=== PATIENT | female | born 1940 | race Caucasian/White ===

== ENCOUNTER 2016-02-20 07:38 | Inpatient (IN) | payer OTHER ==
[~2016-02-20] VITALS: Ht 160 cm; Wt 152.9 kg
--- NOTE | ~2016-02-20 | HC ---
[facility] [place] [address] CONSULTATION Name: ENDER REYES Suzette Room #: 406-P [facility] IN ..#: [id number] Admission: 02/20/16 Attend Phys: Truman Braun MD Discharge: 02/27/16 Date of : 38 Report #: [id number] THIS REPORT FOR: //name// CC: Truman Braun HISTORY OF PRESENT ILLNESS: The patient is a 75-year-old white female with a history of multiple medical problems who was admitted with chronic kidney disease, fluid retention, acute on chronic diastolic congestive heart failure, and acute on chronic kidney disease stage 3. She was noted to have lymphedema. She also has a lung mass in the left upper lobe and was seen by oncology with recommendations for an outpatient PET scan. She has considerable knee degenerative arthritis and the recommendations were to consider knee injections as an outpatient with hyaluronic acid. She does have generalized weakness and debilitation and we are seeing her in rehabilitation medicine consultation. PAST MEDICAL HISTORY: Includes chronic kidney disease stage 3, pulmonary hypertension, pulmonary embolism 11/23, on chronic Coumadin; COPD, obstructive sleep apnea, coronary artery disease, DJD, restless legs syndrome, and peripheral neuropathy. MEDICATIONS: Please see the full medication listing. SOCIAL HISTORY: Lives with her daughters family in a house, used a walker has a lift device. She tends to sleep in the lift chair. There is one step into the house. She used a walker short distances in the house. She did need assist with most ADLs from her daughter. Her daughter typically is home, but is in and out. From my records, the daughter apparently was homeschooling and could be present to assist. REVIEW OF SYSTEMS: Did not offer any current complaints of chest pain, shortness of breath or abdominal discomfort. PHYSICAL EXAMINATION: GENERAL: A 75-year-old obese white female, in no obvious distress. She is alert and oriented. VITAL SIGNS: Last recorded temperature is 97.7, pulse 69, respirations 20, blood pressure 123/36. HEENT: Appeared to be benign. Cranial nerves are grossly intact. Facies are symmetric. EXTREMITIES: She has functional range of motion of both upper extremities without obvious focal weakness. DTRs are trace to 1. In her lower extremities, she has lower extremity lymphedema. Both legs are wrapped. Strength of the lower extremities is a grade 4-/5. Tone is intact. She is mod assist with sit to stand. Gait was mod assist to 8 steps with a front-wheeled walker. ASSESSMENT: A 75-year-old white female with the following problem list: 1. Medical complexity with generalized debilitation. 2. Acute on chronic [address] [address] CONSULTATION Name: ENDER REYES Suzette Room #: 406-P [facility] IN ..#: [id number] Admission: 02/20/16 Attend Phys: Truman Braun MD Discharge: 02/27/16 Date of : 38 Report #: [id number] diastolic congestive heart failure. 3. Acute on chronic kidney disease stage 3. 4. Lymphedema. 5. Lung mass, left upper lobe with plan for outpatient PET. 6. History of degenerative arthritis of both knees with plans for outpatient knee injections by orthopedics with hyaluronic acid. 7. Chronic obstructive pulmonary disease. 8. Obstructive sleep apnea. 9. Restless legs syndrome. 10. Pulmonary hypertension. PLAN: The patient was recently on the acute inpatient [facility]hab [place] in September 2015. She unfortunately does not have a new acute inpatient rehab diagnosis to warrant another acute in-hospital inpatient rehabilitation stay. Note that care home facility options are also being considered. Discussion was held with the daughter and the patient. Thank you for asking us to assist in this patient's care. <ELECTRONICALLY SIGNED> By: Truman Marin MD 03/04/16 1617 1451 1536 Trumna Marin MD /nt
--- NOTE | ~2016-02-20 | D ---
[facility] [place] [address] DISCHARGE SUMMARY Name: ENDER REYES Room #: 406-P [facility] IN ..#: [id number] Admission: 02/20/16 Attend Phys: Truman Braun MD Discharge: 02/27/16 Date of : 38 Report #: [id number] THIS REPORT FOR: //name// CC: Truman Braun FINAL DIAGNOSES: 1. Acute on chronic diastolic congestive heart failure. 2. Chronic kidney disease, stage 4. 3. Lymphedema. 4. Obstructive sleep apnea. 5. Morbid obesity. 6. Osteoarthritis of the knees. 7. History of pulmonary embolus. 8. Chronic anticoagulation. 9. Left upper lung mass. HOSPITAL COURSE: This patient was admitted for exacerbation of her heart failure and complicating kidney disease, a De La Rosa catheter was placed, and she was given IV diuretics, for management and monitoring urinary output. Over the course of 4-5 days, she was approximately negative 9 liters of fluid. The edema in the lower legs have improved significantly. Chest x-ray did not show any pulmonary edema. However, there was a sign of an increasing left upper lung mass. CT of the chest confirmed suspicious appearing mass. Ultimately the plan was an outpatient PET scan with consideration of biopsy at a later date. She had a lot of arthritis in the knees, which limited mobility. Orthopedic service felt cartilage injections could be done, but only as an outpatient. Ultimately, she was too weak to return home and agreed to a assisted placement. PHYSICAL EXAMINATION: On the day of discharge, her vital signs were stable. LUNGS: Clear. HEART: Regular. ABDOMEN: Soft. EXTREMITIES: Showed 1+ edema. LABORATORY DATA: Creatinine was 1.8, with a BUN of 62. DISPOSITION: She will transfer to [facility]. I will follow her stay there. Physical and occupational therapy. I have signed her transfer medication orders. Followup and lab work will be ordered. Once she is ambulatory, we will proceed with an outpatient PET scan and follow up with orthopedic surgery for knee injections. <ELECTRONICALLY SIGNED> By: Truman Braun MD 02/27/16 1730 1401 1650 Truman Braun MD /nt
--- NOTE | ~2016-02-20 | HC ---
[facility] [place] [address] CONSULTATION Name: BROOKLYN REYES Room #: 406-P [facility] IN ..#: [id number] Admission: 02/20/16 Attend Phys: Truman Braun MD Discharge: 02/27/16 Date of : 38 Report #: [id number] THIS REPORT FOR: //name// CC: Truman Braun This is Dr. Pascual, physician library technical assistant in collaboration with Dr. Osvaldo Goins dictating a consultation note on patient, Brooklyn Reyes. ADMIT DATE: 02/20/2016 ADMITTING PHYSICIAN: Dr. Truman Braun. DATE OF CONSULTATION: 02/22/2016. CHIEF COMPLAINT: Bilateral lower extremity lymphedema and shortness of breath. REASON FOR CONSULTATION: For evaluation and recommendation regarding wound care. HISTORY OF PRESENT ILLNESS: The patient is a 75-year-old female with multiple medical comorbidities. She states that she has had lymphedema to her legs for several years, but has noted an increased edema to bilateral lower extremities over the past week. She has increased fluid retention as well as shortness of breath. She has chronic kidney disease stage III, complicated with pulmonary hypertension and systolic dysfunction. The patient states that she typically treats her legs with Kerlix and Konstantin bandage for edema control. The weeping is new to the distal lateral aspect of her left lower extremity. PAST MEDICAL HISTORY: Significant for pulmonary embolus in 2014, she is chronically anticoagulated, chronic pulmonary hypertension, chronic kidney disease, COPD, obstructive sleep apnea on CPAP, lymphedema, coronary artery disease, osteoarthritis of the knees, restless leg syndrome, renal artery stenosis, peripheral neuropathy, hypothyroidism, gout and iron deficiency anemia. PAST SURGICAL HISTORY: Significant for hysterectomy. She states she has had two stents placed to her renal arteries as well as two stents to her heart. SOCIAL HISTORY: She lives with her daughter. Negative for tobacco or alcohol use. FAMILY HISTORY: Noncontributory to current diagnosis. She states family members have varicosities to lower extremities, but negative for lymphedema. ALLERGIES: FLAGYL and PAXIL. MEDICATIONS: Include potassium, Lipitor, Toprol, Demadex, gabapentin, Mirapex, [facility] [address] [place] [address] CONSULTATION Name: AMYBROOKLYN L Room #: 406-P [facility] IN ..#: [id number] Admission: 02/20/16 Attend Phys: Truman Braun MD Discharge: 02/27/16 Date of : 38 Report #: [id number] Ellipta inhaler, ProAir, hydrocodone, Coumadin, and Zoloft. REVIEW OF SYSTEMS: The patient denies fevers, chills or recent sick contacts. She denies headache, change in vision. She denies chest pain or palpitations. She does report shortness of breath. She denies abdominal pain, nausea or vomiting. She does report significant knee pain, which causes her to have mobility issues as well as the increased edema to her legs and she states that her legs become too heavy to move. PHYSICAL EXAMINATION: GENERAL: The patient is morbidly obese. PSYCH: Normal mood. She is alert and oriented. No acute apparent distress. VITAL SIGNS: Temperature 36.5, pulse 61, respirations 18, blood pressure 139/59. HEENT: Head atraumatic. Mucous membranes sure dry. Pupils round. Sclerae white. NECK: Negative for JVD. CARDIOVASCULAR: Regular rate and rhythm. LUNGS: Symmetric expansion, cleared, nonlabored. She does have nasal cannula oxygen in place. ABDOMEN: Soft, nontender, obese. She does have a De La Rosa catheter in, which she states is from the hospitalization. NEUROLOGIC: Cranial nerves 2-12 are intact. She can move all four limbs. Negative for focal neurosensory deficit. Exam of the lower extremities, she has significant lymphedema with lymphedema nodules present from ankle to knee. SKIN: There is significant edema and brawny appearance and she has scaly adherent skin. There is an area of mild serous weeping to the left distal lateral lower extremity. This is scant and honey-colored crust . The patient has 2+ pulse bilaterally. LABORATORY DATA: White blood cells 11.4, hemoglobin 11.1, albumin 3.2. ASSESSMENT: 1. Acute on chronic diastolic congestive heart failure. 2. Acute on chronic kidney disease stage III. 3. Lymphedema with exacerbation of edema and fluid retention. 4. Pulmonary hypertension. 5. Morbid obesity. 6. Hypertension. 7. Anemia of chronic disease. 8. Osteoarthritis in bilateral knees. 9. Obstructive sleep apnea on CPAP. 10. History of pulmonary embolus and on chronic anticoagulation with Coumadin. PLAN: 1. The patient started with IV diuretics and De La Rosa catheter. We will consult [address] [address] CONSULTATION Name: BROOKLYN REYES Suzette Room #: 406-P [facility] IN ..#: [id number] Admission: 02/20/16 Attend Phys: Truman Braun MD Discharge: 02/27/16 Date of : 38 Report #: [id number] physical therapy for pulse lavage to bilateral lower extremities to assist with stasis dermatitis. We will consult lymphedema nurse regarding possible lymphedema wraps on her treatments. 2. We did discuss outpatient lymphedema therapy once discharged. 3. Local wound care to consist of Silvadene and morphine to the lateral open area, Xeroform and ammonium lactate to the remaining areas of bilateral lower extremities covered with Xeroform and wrapped with Kerlix and Konstantin until treatment plans from lymphedema nurse. We will adjust timing of wounds treatments according to the lymphedema nurse's recommendation. 4. Continue routine for wound healing. 5. Continue to follow in wound care rounds during her hospital stay. Thank you for allowing us to participate in the care of this patient. <ELECTRONICALLY SIGNED> By: LUCY Spaulding 02/28/16 1430 2131 0838 LUCY Sapulding /nt
--- NOTE | ~2016-02-20 | HC ---
[facility] [place] [address] CONSULTATION Name: ENDER REYES Room #: 406-P [facility] IN M.R.#: [id number] Admission: 02/20/16 Attend Phys: Truman Braun MD Discharge: Date of : 38 Report #: [id number] THIS REPORT FOR: //name// CC: Truman Braun DATE OF SERVICE: 02/20/2016 SERVICE: Orthopedics. REQUESTING PHYSICIAN: Truman Braun MD HISTORY OF PRESENT ILLNESS: The patient is a 75-year-old female who was admitted to the hospital earlier today with a chief complaint of leg swelling and shortness of breath. She was having some generalized weakness and was noting that she has had worsening bilateral knee pain and was interested in discussing with orthopedics service. The background related to the knees is that she has chronic bilateral osteoarthritis that is severe with [id number] changes. She was admitted to the hospital back in October and saw Dr. Carey who was consulted during her hospitalization and he performed corticosteroid injections on a Thursday by her recollection. She states that she woke up on Thursday with good relief, but by Thursday the effect of the injections had worn off. She was set up with appointment with Dr. Carey just last week where she was interested in inquiring about hyaluronic acid injections, but the weather precluded her from coming, so she canceled and is set up for followup with him later this month. Orthopedics was consulted to discuss with her. She states that she is not interested in additional corticosteroid injections since she did not have adequate relief from either of the injections back in October for either knee. She prefers trialing the option of visco supplementation. She states that her pain is progressing to the point that she is having significant difficulty mobilizing at any point during the day. She does use a walker. ALLERGIES: METRONIDAZOLE and PAROXETINE. PAST MEDICAL HISTORY: Pulmonary embolism, on chronic Coumadin; pulmonary hypertension; stage 3 kidney disease; COPD; obstructive sleep apnea, requiring home CPAP; lymphedema; cardiac disease; osteoarthritis; restless leg syndrome; renal artery stenosis; history of heart failure; peripheral neuropathy; anemia; hypothyroidism and gout. PAST SURGICAL HISTORY: Hysterectomy. FAMILY HISTORY: Still noncontributory. SOCIAL HISTORY: She lives with her daughter. She denies any substance use or [address] [address] CONSULTATION Name: ENDER REYES Room #: 406-P [facility] IN [facility].#: [id number] Admission: 02/20/16 Attend Phys: Truman Braun MD Discharge: Date of : 38 Report #: [id number]. CURRENT MEDICATIONS: Coumadin, sertraline, Synthroid, Mirapex, metoprolol, gabapentin, Lipitor, Lasix, albuterol. PHYSICAL EXAMINATION: VITAL SIGNS: Temperature 36.4, pulse 72, respirations 18, blood pressure 135/43. GENERAL: She is an obese female, lying supine on the hospital bed, alert and oriented, in no acute distress, very appropriate and cooperative. EXTREMITIES: Examination of left lower extremity demonstrates chronic venous stasis skin changes with lymphedema and weakly palpable dorsalis pedis pulse. The posterior tibial pulse is not palpable. She has mild effusion in the knee. She does not have palpable osteophytes due to the soft tissue envelope, but there is medial tenderness. Range of motion is limited by position, but is non-irritable with brisk arc. She demonstrates active extension and flexion. Right lower extremity: Demonstrates chronic venous stasis skin changes with lymphedema and weakly palpable dorsalis pedis pulse. The posterior tibial pulse is not palpable. She has mild effusion in the knee. She does not have palpable osteophytes due to the soft tissue envelope, but there is medial tenderness. Range of motion is limited by position, but is non-irritable with brisk arc. She demonstrates active extension and flexion. RADIOGRAPHS: Two views of the right knee were obtained and demonstrate severe osteoarthritis of the right knee with [id number] changes in the medial compartment and osteophyte formation and subluxation of the tibia secondary to DJD. IMPRESSION: A 75-year-old female with multiple medical problems and immobility secondary to chronic bilateral knee pain with known history of advanced bilateral knee osteoarthritis. PLAN: I discussed with her the corticosteroid injection option, but she feels that she would not like to have this injection again as she did not have adequate relief with the previous trial. She is more interested in hyaluronic acid. This would be a 3 injection series that would require preapproval from her insurance company. She was interested in beginning that treatment here in the hospital. I explained that the 3-week course in an outpatient basis that this would preclude it from occurring in the hospital; however, she does have an appointment to see Dr. Carey and we will see if we can get started with the preapproval process. Her questions were answered. <ELECTRONICALLY SIGNED> By: Oliver Menezes MD 02/22/16 0714 2139 0611 Oliver Menezes MD /nt
--- NOTE | ~2016-02-20 | HC ---
[facility] [place] [address] CONSULTATION Name: ENDER REYES Room #: 406-P [facility] IN .R.#: [id number] Admission: 02/20/16 Attend Phys: Truman Braun MD Discharge: Date of : 38 Report #: [id number] THIS REPORT FOR: //name// CC: Truman Braun DATE OF SERVICE: 02/21/2016 HISTORY OF PRESENT ILLNESS: The patient is a 75-year-old female who was admitted with history of multiple medical problems. She was admitted for significant fluid retention and chronic kidney disease. She is being seen by Podiatry for her elongated, thickened, fungal toenails. She denies any other pedal complaints today. PHYSICAL EXAMINATION: EXTREMITIES: Lower extremities: DP pulses are 1/4. PT pulses are 0/4. Lower extremities with significant lymphedema and hyperpigmentation with brawny hyperpigmentation. The capillary filling time to the toes is less than 3 seconds. Temperature warm to cool. Significant edema to bilateral legs, feet and ankles. There is thin, shiny atrophic skin with decreased hair growth. Toenails 1 through 5 bilateral thickened, dystrophic, brittle with subungual debris, elongated and painful with palpation. There are mild hammertoes, contractures bilateral. Limited ankle dorsiflexion with knee extended and flexed. There is pain on palpation to periungual tissue toenails 1-10. . No other pain on palpation bilateral feet. ASSESSMENT: 1. Lymphedema, venous insufficiency with fluid retention. 2. Onychomycosis with pain in the limb. 3. History of gout, neuropathy. PLAN: Discussed the patient's condition with her in great detail. I have seen her in the past as an outpatient and inpatient. It has been many months since we have seen her last. She was interested in debridement today of her mycotic toenails noted above and this was performed. I again discussed treatment options for toenail fungus with her in detail. I answered all her questions and concerns. Thank you for this consult. <ELECTRONICALLY SIGNED> By: Ruth Alexis DPM 02/26/16 0912 2042 0040 Ruth Alexis DPM /nt
--- NOTE | ~2016-02-20 | H ---
[facility] [place] [address] HISTORY AND PHYSICAL Name: ENDER REYES Room #: 406-P [facility] IN .R.#: [id number] Admission: 02/20/16 Attend Phys: Truman Braun MD Discharge: Date of : 38 Report #: [id number] THIS REPORT FOR: //name// CC: Truman Braun DATE OF SERVICE: 02/20/2016 CHIEF COMPLAINT: Leg swelling and shortness of breath. HISTORY OF PRESENT ILLNESS: The patient is a 75-year-old female with multiple medical problems who was admitted from home for treatment of her chronic kidney disease producing significant fluid retention. She has a history of chronic kidney disease, stage 3 with complicated pulmonary hypertension and diastolic dysfunction, which is causing fluid retention. She has had worsening edema in the lower legs. Her legs have become painful, especially around the knees and below and it is very difficult for her to walk and get around. Her legs feel very heavy and stiff. She has had previous admissions for similar problems in the past and has responded well to IV diuretic therapy. PAST MEDICAL HISTORY: Pulmonary embolus 11/2014, on chronic Coumadin therapy. She has chronic pulmonary heart disease due to pulmonary hypertension, chronic kidney disease stage 3, COPD, obstructive sleep apnea on CPAP, lymphedema, coronary artery disease, osteoarthritis of the knees, restless legs syndrome, chronic anticoagulation, renal artery stenosis with prior history of stents, chronic diastolic congestive heart failure, peripheral neuropathy, hypothyroidism, gout, iron deficiency anemia. PAST SURGICAL HISTORY: She has had a hysterectomy. FAMILY HISTORY: Noncontributory. SOCIAL HISTORY: She has been living with her daughter. No known chronic alcohol or tobacco use. ALLERGIES: FLAGYL and PAXIL. MEDICATIONS: Potassium 20 mEq daily, Lipitor 40 mg, Toprol-XL 25 mg twice a day, Demadex 20 mg twice a day, gabapentin 300 mg twice a day, Mirapex 0.25 mg at bedtime, Incruse Ellipta inhaler 1 puff daily, ProAir as needed, hydrocodone 5 mg every 6 hours as needed, Coumadin 5 mg 1/2 tab 4 days a week and 1 tablet 3 days a week, Zoloft 100 mg. REVIEW OF SYSTEMS: She complains of knee pain, a little bit of shortness of breath. No chest pain, nausea, vomiting, diarrhea, constipation. PHYSICAL EXAMINATION: [facility] [address] [place] [address] HISTORY AND PHYSICAL Name: ENDER REYES Room #: 406-P [facility] IN .R.#: [id number] Admission: 02/20/16 Attend Phys: Truman Braun MD Discharge: Date of : 38 Report #: [id number] VITAL SIGNS: Per the nursing note. GENERAL: She is awake and alert, in no distress. LUNGS: Clear. HEART: Regular. ABDOMEN: Soft, obese, normoactive bowel sounds. EXTREMITIES: 3+ pitting edema. She has venous stasis dermatitis skin changes of both legs, bilateral with some edema blisters. ASSESSMENT: 1. Acute on chronic diastolic congestive heart failure. 2. Acute on chronic kidney disease, stage 3. 3. Lymphedema. 4. Pulmonary hypertension. 5. Morbid obesity. 6. Chronic anticoagulation with Coumadin. 7. Personal history of pulmonary embolus. 8. Hypertension. 9. Anemia of chronic disease. 10. Osteoarthritis of the knees. 11. Obstructive sleep apnea, on CPAP. PLAN: Lab works have been ordered. I will place her on IV diuretics with De La Rosa catheter to monitor input and output. She has responded well with this treatment in the past. She is having a lot of knee pain when trying to walk, I am sure a lot of this is related to her obesity. We will see if Orthopedics feels whether a steroid injection would be safe or not given her anticoagulation. <ELECTRONICALLY SIGNED> By: Truman Braun MD 02/21/16 1116 1417 1808 Truman Braun MD /nt
--- NOTE | ~2016-02-20 | CNG ---
[facility] [place] [address] CYTO-NONGYN REPORT PROCEDURE Name: BROOKLYN REYES Room #: 406-P ADM IN M.R.#: [id number] Admission: 02/20/16 Date of : 36 Discharge: Report #: [id number] Path Case #: [id number] CYTOPATHOLOGY REPORT COLLECTION DATE: 02/22/2016 RECEIVED DATE: 02/25/2016 SUBMITTING PHYS: Dr. Raymond Kruger OTHER PHYS: Dr. Truman Braun CLINICAL HISTORY: Chronic KD. SPECIMEN(S) RECEIVED: A.Sputum * * * * * * * * * * * * FINAL DIAGNOSIS: A. Sputum: NEGATIVE FOR MALIGNANT CELLS. Pulmonary macrophages, squamous epithelial cells, mucus, and abundant bacteria. PATHOLOGIST: Scar Armando M.D. REPORT ELECTRONICALLY SIGNED BY: Scar Armando M.D. DATE/TIME: 02/26/2016 11:53 * * * * * * * * * * * * GROSS PATHOLOGY: A. Sputum: The specimen is submitted unfixed, labeled "Brooklyn Reyes Suzette". Received by the Cytology Department is less than one mL of clear white fluid. One ThinPrep slide was prepared. (clt 02.25.2016) QA INTERNSHIP(S): GERI Dumas(ASCP) INITIAL CPT CODE(S): A; 16630 Professional services performed by [facility] at [facility] , [place] [address] Technical services performed by [facility] at [address] [place] [address]., [address], [place] [address]. [facility] [address] [place] [address], [address] [place] [address] PHONE: [phone] [facility] [address] [place] [address] CYTO-NONGYN REPORT PROCEDURE Name: BROOKLYN REYES Room #: 406-P ADM IN M.R.#: [id number] Admission: 02/20/16 Date of : 36 Discharge: Report #: [id number] Path Case #: [id number] DIRECTOR: Ryland Love M.D. * * * END OF REPORT * * *
[~2016-02-20 07:38] MED LIST: ADVAIR HFA115 MCG/21 INH; ASPIRIN325; ATORVASTATIN CA40 MG PO; BUMETANIDE 1 MG1 M1 PO; BUMETANIDE0.25 MG/1; CENTRUM SILVER1 EAC4 PO; CENTRUM SILVER1 EACH PO; COUMADIN 5 MG TA5 M1 PO; DEMADEX20 MG PO; DETROL LA2 MG; DIOVAN320 MG PO; ENOXAPARIN150 MG/11 SUBQ; HYDROCERIN CREA1 JAR TOP; IRON325 PO; KLOR-CON 1010 MEQ; LEVOTHYROXIN0.075 MG PO; MIRAPEX 0.250.25 M1 PO; MIRAPEX1 MG; MIRAPEX1 MG PO; MUCINEX TA600 MG/TA2 PO; NEURONTIN 300300 M1 PO; NITROGLYCERIN0.4 MG SUBLING; PLAVIX 75 MG TA75 M1; POTASSIUM20 PO; PROAIR HFA8.5 GM INH; SERTRALINE HCL50 MG PO; TOPROL XL25 MG PO; TRAMADOL 50 MG50 MG PO; TRIAMCINOLONE A80 G2 TOP; TUDORZA PRESS400 MCG INH; ZOLOFT50 MG
[2016-02-20 15:38] LABS: HEMATOCRIT 33.2 % (37.0-47.0); HEMOGLOBIN 11.1 gm/dL (12.0-15.0); MCH 29.3 pg (26.0-34.0); MCHC 33.4 % (28.0-37.0); MCV 87.5 fL (80.0-100.0); RBC 3.8 mil/uL (4.20-5.00); RDW 15.4 % (10.5-14.5); WBC 7.4 thou/uL (4.0-11.0)
[2016-02-20 15:50] LABS: INR 2.6
[2016-02-20 15:54] LABS: ALBUMIN 3.2 g/dL (3.4-5.0); CALCIUM 8.5 mg/dL (8.5-10.1); CREATININE 1.6 mg/dL (0.6-1.3); POTASSIUM 4.2 mmol/L (3.5-5.1); TOTAL BILIRUBIN 0.4 mg/dL (<0.1-1.0); TOTAL PROTEIN 7.2 g/dL (6.4-8.2)
[2016-02-20 16:00] VITALS: BP 160/55
[2016-02-20 20:00] VITALS: BP 135/43
[2016-02-21] VITALS: BP 132/35
[2016-02-21 04:00] VITALS: BP 103/39
[2016-02-21 08:00] VITALS: BP 134/49
[2016-02-21 16:14] VITALS: BP 142/53
[2016-02-21 17:54] LABS: CALCIUM 8.4 mg/dL (8.5-10.1); CREATININE 1.7 mg/dL (0.6-1.3); POTASSIUM 4.3 mmol/L (3.5-5.1)
[2016-02-21 19:58] VITALS: BP 134/45
[2016-02-22 03:27] VITALS: BP 147/54
[2016-02-22 07:10] LABS: INR 2.3; PROTIME 24.1 Seconds (9.3-11.4)
[2016-02-22 08:32] VITALS: BP 134/59
[2016-02-22 16:00] VITALS: BP 137/56
[2016-02-22 18:56] LABS: CALCIUM 8.4 mg/dL (8.5-10.1); CREATININE 1.6 mg/dL (0.6-1.3); POTASSIUM 4.6 mmol/L (3.5-5.1)
[2016-02-22 20:00] VITALS: BP 115/37
[2016-02-23 04:00] VITALS: BP 111/36
[2016-02-23 07:35] LABS: HEMATOCRIT 33.4 % (37.0-47.0); HEMOGLOBIN 11.2 gm/dL (12.0-15.0); MCH 29.1 pg (26.0-34.0); MCHC 33.4 % (28.0-37.0); MCV 87.1 fL (80.0-100.0); RBC 3.84 mil/uL (4.20-5.00); RDW 15.3 % (10.5-14.5); WBC 8.1 thou/uL (4.0-11.0)
[2016-02-23 07:36] VITALS: BP 139/32
[2016-02-23 07:49] LABS: CALCIUM 8.4 mg/dL (8.5-10.1); CREATININE 1.6 mg/dL (0.6-1.3); POTASSIUM 4.5 mmol/L (3.5-5.1)
[2016-02-23 07:50] LABS: INR 1.9; PROTIME 19.4 Seconds (9.3-11.4)
[2016-02-23 15:32] VITALS: BP 121/40
[2016-02-23 18:05] LABS: CALCIUM 8.3 mg/dL (8.5-10.1); CREATININE 1.6 mg/dL (0.6-1.3); POTASSIUM 4.4 mmol/L (3.5-5.1)
[2016-02-23 19:40] VITALS: BP 122/45
[2016-02-24 03:51] VITALS: BP 134/35
[2016-02-24 07:52] LABS: CREATININE 1.7 mg/dL (0.6-1.3); POTASSIUM 3.9 mmol/L (3.5-5.1)
[2016-02-24 07:53] LABS: INR 1.6; PROTIME 16.1 Seconds (9.3-11.4)
[2016-02-24 08:00] VITALS: BP 116/44
[2016-02-24 16:46] VITALS: BP 130/52
[2016-02-24 18:37] LABS: CALCIUM 8.4 mg/dL (8.5-10.1); CREATININE 1.8 mg/dL (0.6-1.3); POTASSIUM 4.3 mmol/L (3.5-5.1)
[2016-02-24 19:05] VITALS: BP 127/47
[2016-02-25 04:29] LABS: HEMATOCRIT 33.9 % (37.0-47.0); HEMOGLOBIN 11.3 gm/dL (12.0-15.0); MCH 29.4 pg (26.0-34.0); MCHC 33.5 % (28.0-37.0); MCV 87.8 fL (80.0-100.0); RBC 3.86 mil/uL (4.20-5.00); WBC 6.5 thou/uL (4.0-11.0)
[2016-02-25 04:37] LABS: CREATININE 1.9 mg/dL (0.6-1.3)
[2016-02-25 04:42] LABS: INR 1.4; PROTIME 14.7 Seconds (9.3-11.4)
[2016-02-25 04:51] VITALS: BP 123/38
[2016-02-25 08:00] VITALS: BP 117/54
[2016-02-25 08:41] LABS: INR 1.3; PROTIME 13.6 Seconds (9.3-11.4)
[2016-02-25 16:54] VITALS: BP 132/46
[2016-02-25 18:50] LABS: CREATININE 1.8 mg/dL (0.6-1.3); POTASSIUM 4.1 mmol/L (3.5-5.1)
[2016-02-25 20:00] VITALS: BP 108/28; BP 126/37
[2016-02-26 04:22] VITALS: BP 111/30
[2016-02-26 07:27] LABS: CALCIUM 7.8 mg/dL (8.5-10.1); POTASSIUM 3.7 mmol/L (3.5-5.1)
[2016-02-26 07:29] LABS: INR 1.3; PROTIME 13.7 Seconds (9.3-11.4)
[2016-02-26 09:48] VITALS: BP 123/36
[2016-02-26] MEDS ORDERED: AUGMENTIN 500-1 EACH PO (09:52)
[2016-02-26] MEDS ORDERED: HYDROCODONE-AP1 EAC6 PO (09:53)
[2016-02-26 16:08] LABS: BLASTOMYCES-IMMUNODIFF Negative (Neg:<1:1); COCCIDIOIDES-IMMUNODIFF Negative (Neg:<1:1); HISTOPLASMA-IMMUNODIFF Negative (Neg:<1:1)
[2016-02-26 16:24] VITALS: BP 148/39
[2016-02-26 18:24] LABS: CREATININE 1.8 mg/dL (0.6-1.3); POTASSIUM 4.3 mmol/L (3.5-5.1)
[2016-02-26 19:20] VITALS: BP 116/33
[2016-02-27 03:28] VITALS: BP 129/41
[2016-02-27 08:00] VITALS: BP 120/39
[2016-02-27 17:12] LABS: ASPERGILLUS FLAVUS-ID Negative (Neg:<1:1); ASPERGILLUS FUMIGATUS-ID Negative (Neg:<1:1); ASPERGILLUS NIGER-ID Negative (Neg:<1:1)
== END 2016-02-27 15:28 | DRG 291 ==
LOC: PRE 07:38 → 4N 12:52
PROVIDERS: Internal Medicine Geriatric Medicine; Internal Medicine Pulmonary Disease
DX: I13.0 Hypertensive heart and chronic kidney disease with heart failure and stage 1 through stage 4 chronic kidney disease, or unspecified chronic kidney disease (principal); I50.33 Acute on chronic diastolic (congestive) heart failure; N17.9 Acute kidney failure, unspecified; N18.4 Chronic kidney disease, stage 4 (severe); Z68.43 Body mass index [BMI] 50.0-59.9, adult; I27.2 Other secondary pulmonary hypertension; G47.33 Obstructive sleep apnea (adult) (pediatric); J44.9 Chronic obstructive pulmonary disease, unspecified; G25.81 Restless legs syndrome; G62.9 Polyneuropathy, unspecified; E03.9 Hypothyroidism, unspecified; M10.9 Gout, unspecified; M17.0 Bilateral primary osteoarthritis of knee; I87.2 Venous insufficiency (chronic) (peripheral); B35.1 Tinea unguium; D63.8 Anemia in other chronic diseases classified elsewhere; R91.8 Other nonspecific abnormal finding of lung field; R59.1 Generalized enlarged lymph nodes; E66.01 Morbid (severe) obesity due to excess calories; Z90.710 Acquired absence of both cervix and uterus; Z95.828 Presence of other vascular implants and grafts; Z95.5 Presence of coronary angioplasty implant and graft; Z86.711 Personal history of pulmonary embolism; Z79.01 Long term (current) use of anticoagulants; Z98.890 Other specified postprocedural states; Z88.8 Allergy status to other drugs, medicaments and biological substances; Z80.3 Family history of malignant neoplasm of breast; Z82.49 Family history of ischemic heart disease and other diseases of the circulatory system
CPT/HCPCS: 10790

== ENCOUNTER 2016-04-28 14:18 | Inpatient (IN) | payer OTHER ==
[~2016-04-28] VITALS: Ht 167.6 cm; Wt 158.7 kg
--- NOTE | ~2016-04-28 | D ---
[facility] [place] [address] DISCHARGE SUMMARY Name: ENDER REYES Room #: 209-P ADM IN M.R.#: [id number] Admission: 04/28/16 Attend Phys: Truman Braun MD Discharge: Date of : 36 Report #: [id number] THIS REPORT FOR: //name// CC: Truman Braun FINAL DIAGNOSES: 1. Left lung mass. 2. Acute on chronic diastolic congestive heart failure. 3. Chronic kidney disease, stage 4. 4. Lymphedema. 5. Morbid obesity. 6. Obstructive sleep apnea. HOSPITAL COURSE: The patient was admitted with shortness of breath. She was treated for acute on chronic diastolic heart failure along with complicated chronic kidney disease, stage 4 and her obstructive sleep apnea, morbid obesity. There is also an ongoing issue of the left lung mass which size with lymph node enlargement on repeat CT. She was seen by Pulmonary, Oncology and Radiation Oncology. Ultimately, the plan will be for her to improve her mobility and strength with physical therapy. If she can do that, then we will try to set her up for an outpatient PET scan through . Pending those results, she may have an outpatient consultation with radiation therapy. Other home medications were continued. She was seen by the renal service as well. DISPOSITION: She is returning home with home health, physical therapy and occupational therapy. Diet and activity as tolerated. Resume all home medications plus Augmentin for 5 days. She has a home INR monitoring machine and we will have BMP in 1 week. Follow up with me in a month if she gains mobility and we will set up an outpatient PET scan. <ELECTRONICALLY SIGNED> By: Truman Braun MD 05/02/16 1433 1303 1344 Truman Braun MD /nt
--- NOTE | ~2016-04-28 | HC ---
[facility] [place] [address] CONSULTATION Name: ENDER REYES Room #: 209-P [facility] IN .R.#: [id number] Admission: 04/28/16 Attend Phys: Truman Braun MD Discharge: 05/02/16 Date of : 36 Report #: [id number] THIS REPORT FOR: //name// CC: Truman Braun DATE OF SERVICE: 04/28/2016 NEPHROLOGY CONSULTATION ATTENDING PHYSICIAN: Truman Braun M.D. REASON FOR CONSULTATION: Chronic kidney disease. HISTORY OF PRESENT ILLNESS: The patient is well known to our service, follows with Dr. Judd in the office. She has chronic edema and lymphedema related to obesity hypoventilation, obstructive sleep apnea, massive obesity with brawny lower extremity lymphedema and some degree of CKD with her creatinine usually running about 1.82. Over the last several days, she has had nausea, no vomiting; poor appetite; weakness; has not been taking her medications; has not been eating or drinking well; came to the hospital and was admitted. PAST MEDICAL HISTORY: Of interest, she has had bilateral renal artery stents done which they tell was about 10 years ago. She has sleep apnea but does not use CPAP or BiPAP. She has obesity hypoventilation and chronic lung disease. She may or may not have coronary artery disease, her history is a little unclear on this subject. She denies diabetes. PAST SURGICAL HISTORY: She has had previous tonsillectomy and hysterectomy. HOME MEDICATIONS: As listed in the chart includes torsemide 20 mg daily, ProAir inhaler, atorvastatin 40 mg daily, iron, Advair, gabapentin 300 mg b.i.d., levothyroxine 0.075 mg daily, Toprol-XL 25 mg daily, potassium 20 mEq daily, Zoloft 50 mg daily and warfarin 2.5 mg daily. FAMILY HISTORY: Positive for cancer. SOCIAL HISTORY: Former smoker, lives with her daughter. REVIEW OF SYSTEMS: GENERAL: She has been feeling poorly and she has been weak. EYES: Her vision does not give her any problems. ENT: Hearing okay, swallows okay. No mouth sores or ulcers. ENDOCRINE: No diabetes. Positive for thyroid disease. RESPIRATORY: No shortness of breath currently, but she has chronic shortness of breath with any exertion, extremely weak. CARDIOVASCULAR: Cardiac history is unclear, she may have coronary artery [facility] [address] [place] [address] CONSULTATION Name: ENDER REYES Room #: 209-P [facility] IN ..#: [id number] Admission: 04/28/16 Attend Phys: Truman Braun MD Discharge: 05/02/16 Date of : 36 Report #: [id number] disease, may have had her previous cardiac respiratory arrest or maybe just pulmonary or anxiety attack when she was in [place]. GASTROINTESTINAL: Nausea and vomiting as mentioned. No diarrhea. GENITOURINARY: No dysuria or hematuria and she has got the renal artery stents as mentioned. Extensive history taken from the electronic medical record, also from the daughter at the bedside and taken from the patient herself. PHYSICAL EXAMINATION: GENERAL: This is a morbidly obese, relatively comfortable elderly woman, she does not appear to be in any acute distress, lying in bed. SKIN: She has got very brawny, very severe thickened lichenified skin over the lower extremities part way up. SKELETAL: She is a well developed, well nourished, but very obese. HEENT: Extraocular movements are full. Vision is intact. Hearing is intact. Mucous membranes moist. Tongue, buccal mucosa benign. NECK: Supple, no carotid bruits. CHEST: Diminished breath sounds. HEART: Regular. ABDOMEN: Very obese, soft, nontender. EXTREMITIES: No real pitting edema, just lichenified brawny lymphedema as mentioned. NEUROLOGIC: Very weak, moves all extremities. LABORATORY DATA: Hemoglobin 10.4, sodium 139, potassium 3.5, chloride 105, bicarbonate 24, BUN 21, creatinine 1.4. ASSESSMENT AND PLAN: 1. Chronic kidney disease. Creatinine is about as good as we have seen in her over the last several years, so renal wall she is in pretty good balance. We would recommend just continue her home medications as before with a low soft diet. We expect her to be stable from this view point. 2. Obesity hypoventilation. 3. Obstructive sleep apnea, not using CPAP. 4. History of renal artery stents. <ELECTRONICALLY SIGNED> By: Karthik Judd MD 05/03/16 0826 1849 2358 Wilmer Serna MD /nt
--- NOTE | ~2016-04-28 | H ---
[facility] [place] [address] HISTORY AND PHYSICAL Name: ENDER REYES Room #: 209-P ADM IN M.R.#: [id number] Admission: 04/28/16 Attend Phys: Truman Braun MD Discharge: Date of : 36 Report #: [id number] THIS REPORT FOR: //name// CC: Truman Braun DATE OF SERVICE: 04/28/2016 CHIEF COMPLAINT: Nausea and weakness. HISTORY OF PRESENT ILLNESS: The patient is a 76-year-old female with multiple medical problems who is admitted from home with weakness, nausea and vomiting. She said for a couple of days, she has lost her appetite and has felt some nausea. She denied any fever, chills, productive cough or shortness of breath. She has a known history of chronic cardiopulmonary disease including diastolic heart failure and pulmonary hypertension, morbid obesity and obstructive sleep apnea along with chronic kidney disease stage 4 with her current issues with edema control. There is also an ongoing issue whether a large left upper lung mass represents malignancy as she has been unable to proceed with an outpatient PET scan due to her morbid obesity and lack of mobility. PAST MEDICAL HISTORY: Chronic diastolic congestive heart failure; lymphedema; pulmonary embolus in 11/2014, on chronic Coumadin therapy; pulmonary hypertension; chronic kidney disease, stage 3-4; COPD; obstructive sleep apnea, on CPAP; coronary artery disease; osteoarthritis of the knees; restless legs syndrome; renal artery stenosis with prior history of stent; peripheral neuropathy; hypothyroidism; gout; iron deficiency anemia; left upper lobe lung mass. PAST SURGICAL HISTORY: Hysterectomy. FAMILY HISTORY: Noncontributory. SOCIAL HISTORY: She lives with her daughter. No chronic alcohol or tobacco use. ALLERGIES: FLAGYL and PAXIL. MEDICATIONS: Potassium 20, Lipitor 40, Toprol-XL 25 b.i.d., Demadex 20, gabapentin 300 b.i.d. Mirapex 0.25 at bedtime, Incruse Ellipta inhaler 1 puff daily, ProAir p.r.n., hydrocodone p.r.n., Coumadin 5 mg half tab 4 days a week and 1 tablet 3 days a week, Zoloft 100 mg. REVIEW OF SYSTEMS: She denies any nausea, chest pain, shortness of breath, abdominal pain, dysuria, myalgias, syncope. PHYSICAL EXAMINATION: [facility] [address] [address] HISTORY AND PHYSICAL Name: ENDER REYES Room #: 209-P [facility] IN [facility].#: [id number] Admission: 04/28/16 Attend Phys: Truman Braun MD Discharge: Date of : 36 Report #: [id number] VITAL SIGNS: Temperature 98.8, pulse 57, respirations 20, blood pressure , O2 sat 93% on room air. GENERAL: Awake and alert, in no distress. LUNGS: Clear. HEART: Regular. ABDOMEN: Obese, soft, normoactive bowel sounds. EXTREMITIES: 3+ edema. LABORATORY AND X-RAY DATA: Reviewed. ASSESSMENT: 1. Left upper lobe lung mass, concerning for malignancy. 2. Chronic kidney disease, stage 3. 3. Acute on chronic diastolic congestive heart failure. 4. Pulmonary hypertension. 5. Morbid obesity. 6. Chronic lymphedema. 7. Chronic anticoagulation with a history of pulmonary embolism in 2015. PLAN: At this point, our focus is centered on this lung mass and whether this represents malignancy. If so, I think her treatment options are limited as she is not a candidate for surgical intervention or in my view chemotherapy due to her poor performance status and another health issues. I am not sure she could even manage outpatient radiation therapy due to her lack of mobility. In any event, renal and pulmonary have been consulted and agree with Oncology giving an opinion on diagnostic workup and any available treatment options. Prognosis is poor. <ELECTRONICALLY SIGNED> By: Truman Braun MD 04/30/16 1434 1100 1245 Truman Braun MD /nt
--- NOTE | ~2016-04-28 | HC ---
[facility] [place] [address] CONSULTATION Name: ENDER REYES Room #: 209-P [facility] IN .R.#: [id number] Admission: 04/28/16 Attend Phys: Truman Braun MD Discharge: Date of : 36 Report #: [id number] THIS REPORT FOR: //name// CC: Truman Braun Dr. DATE OF CONSULTATION: 05/02/2016. INTRODUCTION: The patient is a 76-year-old female who is being seen for general podiatric care regarding dystrophic and sensitive toenails. The patient has a history of congestive heart failure, renal disease, obesity. Denies diabetes. A longstanding issues associated with lower extremity lymphedema, including severe bilateral dermatologic sequelae. The patient is in need of a general nail care. Denies other issues with her feet at this time. PEDAL EXAM: Dorsalis pedis and posterior tibial pulses are weakly palpable predominantly due to the patient's skin quality and residual edema. NEUROLOGICAL: The patient is grossly intact to sensory stimulus including sharp, dull, proprioceptive and vibratory sensations. DERMATOLOGIC: The patient exhibits hard induration, lichenification of the skin involving her feet, ankles, and lower legs due to chronic longstanding edema. There are no acute findings in this regard. Her nails are thickened, elongated, show clinical evidence of onychomycosis in varying degrees. They are sensitive to palpation. No paronychia or evidence of acute findings at this time. Remainder of her pedal exam is unremarkable. ASSESSMENT: 1. Onychodystrophy associated with onychomycosis. 2. Severe lower extremity edema with skin sequelae. 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 Her nails were debrided for her today. No additional treatment was required. It has been a pleasure having the opportunity of caring for this patient. I will be pleased to her around and follow up with her upon request. By: 0925 1132 Derrek Husain DPM /cassie
--- NOTE | ~2016-04-28 | CNG ---
[facility] [employer] [address] CYTO-NONGYN REPORT PROCEDURE Name: AMYBROOKLYN L Room #: 209-P ADM IN M.R.#: [id number] Admission: 04/28/16 Date of : 36 Discharge: Report #: [id number] Path Case #: [id number] CYTOPATHOLOGY REPORT COLLECTION DATE: 04/29/2016 RECEIVED DATE: 04/30/2016 SUBMITTING PHYS: Dr. Raymond Kruger OTHER PHYS: Dr. Truman Braun CLINICAL HISTORY: CHF SPECIMEN(S) RECEIVED: A.Sputum * * * * * * * * * * * * FINAL DIAGNOSIS: A. Sputum: - No malignant cells identified. - Occasional bronchial epithelial cells, alveolar macrophages, acute and chronic inflammatory cells, and squamous cells identified. PATHOLOGIST: Melissa Trinidad M.D. REPORT ELECTRONICALLY SIGNED BY: Melissa Trinidad M.D. DATE/TIME: 05/01/2016 13:07 * * * * * * * * * * * * GROSS PATHOLOGY: A. Sputum: The specimen is submitted unfixed, labeled "Brooklyn Reyes". Received by the Cytology Department is less than one mL of thick yellow fluid. One ThinPrep slide was prepared. (clt 04.30.2016) SENSOR TECHNICIAN(S): [facility]I Neumann[facility] INITIAL CPT CODE(S): A; 23913 Professional services performed by [facility] at [facility] [address] [place] [address] Technical services performed by [facility] at [address] [place] [address]., [address], [place] [address]. [facility] [address] [place] [address], [address] [place] [address] [facility] [address] [place] [address] CYTO-NONGYN REPORT PROCEDURE Name: BROOKLYN REYES Room #: 209-P ADM IN M.R.#: [id number] Admission: 04/28/16 Date of : 36 Discharge: Report #: [id number] Path Case #: [id number] PHONE: [phone] DIRECTOR: Ryland Love M.D. * * * END OF REPORT * * *
--- NOTE | ~2016-04-28 | HC ---
[facility] [place] [address] CONSULTATION Name: ENDER REYES Room #: 209-P ADM IN M.R.#: [id number] Admission: 04/28/16 Attend Phys: Truman Braun MD Discharge: Date of : 36 Report #: [id number] THIS REPORT FOR: //name// CC: Angel Mejia MD RADIATION ONCOLOGY CONSULTATION ID: Presumed lung cancer. HISTORY OF PRESENT ILLNESS: The patient is a 76-year-old female from [place], [place], currently inpatient at [facility] with presumed nonsmall cell lung cancer. She has other multiple comorbidities including CHF, lymphedema, pulmonary embolism on chronic anticoagulation therapy, pulmonary hypertension, stage 3-4 chronic kidney disease, COPD and morbid obesity. She is currently admitted; however, with weakness, nausea and vomiting. A CT chest was performed and shows an irregularly spiculated mass in the posterior left upper lobe which is increased in size measuring 5.1 x 4.5 x 4.7 cm as well as scattered mediastinal lymph nodes with increased size compared to the prior exam on February 2016 including a pretracheal lymph node measuring up to 1.3 cm. It did not show any further evidence of disease. She has been seen by her primary care physician, Dr. Braun as well as her weed controller, Dr. Kruger as an inpatient who have discussed further workup including PET scan and possibilities of biopsy. However, they have consulted medical oncology and now me to weigh in on the risks, benefits, and feasibility of any definitive treatments should we diagnose this presumed lung cancer further. This morning, the patient is an extremely friendly and upbeat. She states she is a prior smoker, but has not smoked for a while. She denies any problems with pain. She denies hemoptysis. PAST MEDICAL HISTORY: Chronic diastolic congestive heart failure; lymphedema; pulmonary embolism in 2015, on chronic Coumadin therapy; pulmonary hypertension; chronic kidney disease, stage 3 to 4; COPD; obstructive sleep apnea, on CPAP; coronary artery disease; osteoarthritis of the bilateral knees; restless leg syndrome; renal artery stenosis with prior history of stent; peripheral neuropathy; hypothyroidism; gout; iron deficiency anemia. PAST SURGICAL HISTORY: Hysterectomy. FAMILY HISTORY: Noncontributory. SOCIAL HISTORY: The patient lives in [place] with her daughter. She is a prior smoker, but does not smoke currently. [facility] [address] [place] [address] CONSULTATION Name: ENDER REYES Room #: 209-P [facility] IN .R.#: [id number] Admission: 04/28/16 Attend Phys: Truman Braun MD Discharge: Date of : 36 Report #: [id number] ALLERGIES: Include Flagyl of Paxil. MEDICATIONS: I reviewed her inpatient and outpatient medications, please refer to those in the medical record for a detailed list. REVIEW OF SYSTEMS: Reviewed a 12-system review of systems with the patient. The pertinent positives and negatives as detailed in the HPI. PHYSICAL EXAMINATION: VITAL SIGNS: Pulse is 62, blood pressure 154/61, respirations are 16, saturating 93% on room air, temperature is 97.5 degrees. Her weight is varied from 338 to 352 pounds. She is 5 feet 6 inches. GENERAL: Very pleasant female, alert and oriented times 3, resting comfortably in her hospital bed, morbidly obese. The remainder of the exam is deferred today. Please see the other inpatient notes for more detailed exams. She does not have any audible wheeze today. She does have significant lymphedema in the bilateral lower extremities. IMAGING: CT chest without contrast 04/28/2016. COMPARISON: 02/21/2016. FINDINGS: Redemonstrated is the irregular spiculated mass within the posterior left upper lobe which is an increase in size, now measuring approximately 5.1 x 4.5 x 4.7 cm. There is mild lesional interstitial thickening noted on the right. Emphysematous changes again noted most prominent within the upper lobes. Scattered mediastinal lymph nodes are noted, increase in size when compared to the prior exam consistent with metastatic disease. There is a pretracheal lymph node noted measuring up to 1.3 cm in short axis compared to 0.8 cm on the prior exam. The heart size is stable. No evidence of pericardial effusion. Coronary artery calcifications. No evidence of pneumothorax. Mild patchy dependent atelectasis/scarring. Limited imaging through the upper abdomen. IMPRESSION: Interval increase in size of left upper lobe irregular soft tissue mass consistent with progression of primary bronchogenic carcinoma. CT findings consistent with progression of metastatic thoracic adenopathy with increase in size of a few scattered mediastinal lymph nodes. PATHOLOGY: There was no pathology to review. ASSESSMENT: Presumed left upper lobe lung cancer with possible mediastinal kathya involvement and undetermined metastatic involvement. PLAN AND RECOMMENDATIONS: I have been asked to give my opinion regarding the risks and benefits of radiation for the patient. At minimum, I feel we need to [address] [address] CONSULTATION Name: ENDER REYES Room #: 209-P ADM IN M.R.#: [id number] Admission: 04/28/16 Attend Phys: Truman Braun MD Discharge: Date of : 36 Report #: [id number] complete a PET scan. This will show the extent of disease in the lung, but will delineate the extent of disease in the lymph nodes and possibly in metastatic sites. This will greatly determine the approach with any definitive or palliative therapy. If it turns out, she has isolated disease in the left upper lobe. I can deliver definitive radiation and a short course over 15-20 treatments and she should tolerate this fairly well. Her functional limitation should not limit her from being able to undergo this therapy. If the PET scan shows that she has disease in the lung and in the lymph nodes, but no metastatic sites then that is stage III disease and the benefit for radiation alone 5-10% long-term control. It would also need to be delivered over 6 weeks of treatment (30 fractions) and would carry a slightly more toxicity to the esophagus and lungs. I do not believe she would be a chemotherapy candidate, but would of course I have discussed this further with Dr. Mejia. If she has metastatic disease, then there is no current role for radiation. She is not symptomatic, does not have hemoptysis and there is no pulmonary collapse imminent on this peripheral lung tumor. I am willing to consider proceeding without biopsy given the risks of obtaining a biopsy and the high clinical likelihood that this represents a cancer. This will only be reinforced with avidity on a PET scan. In an ideal situation, I would have a biopsy, but I am not going to withhold treatment if that is not an option. I spoke with Dr. Kruger by phone this evening and he is aware of my recommendations. I at this point would recommend when she is stable for discharge, setting her up for a PET scan as an outpatient. I do not believe this could be done at [facility] because the mobile unit. She was unable to tolerate that before. I would recommend a PET scan with where we can avoid the limitations of her functional disabilities. I believe we can get a PET scan done at . Once we have the results of that scan, I will hopefully be notified and that can follow up with the patient at that time. I would like to thank Dr. Kruger for a consulting me. It was a pleasure to participate in this patient's care. I will sign off for now, but I am available as needed to return to see her as an inpatient. <ELECTRONICALLY SIGNED> By: Emory Amaya MD 05/02/16 1326 [id number] Emory Amaya MD /nt
--- NOTE | ~2016-04-28 | HC ---
[facility] [place] [address] CONSULTATION Name: ENDER REYES Room #: 209-P [facility] IN .R.#: [id number] Admission: 04/28/16 Attend Phys: Truman Braun MD Discharge: Date of : 38 Report #: [id number] THIS REPORT FOR: //name// CC: Truman Braun DATE OF SERVICE: 05/01/2016 HISTORY OF PRESENT ILLNESS: The patient is a 76-year-old white female previously known to me who was on the acute inpatient rehabilitation [place] back in September of 2015, staying from 09/24/2015-10/03/2015. She progressed nicely at that time to the point where she was modified independent ambulating 80 feet with a front-wheeled walker and she achieved standby assistance with bed mobility and modified independent with sit to stand. She has been back at home, living with her daughter, son-in-law and 14-year-old son. She has been readmitted at this time with nausea, worsening weakness, noted to have left upper lower mass. 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 Oncology is involved. The patient needs better mobility to consider outpatient PET scan or potential radiation therapy. She was unable to undergo PET scanning prior to this admission because there was noted to be inadequate space to lift her up into the PET scanner with her morbid obesity. The patient also is being seen regarding acute on chronic congestive heart failure. She has pulmonary hypertension. She also has chronic kidney disease stage III. She has a prior history of a pulmonary embolism for which anticoagulation has been continued. She also has a history of significant degenerative arthritis of both knees, but has underwent hyaluronic acid injection to both knees by Dr. Carey in Orthopedics approximately one month ago and she notes that the symptoms are overall improved. We are seeing her in rehabilitation medicine consultation. She needs to achieve the better mobility as noted above, but adamantly refuses penitentiary facility consideration and we are considering her for an acute inpatient rehabilitation stay. PAST MEDICAL HISTORY: Includes chronic diastolic congestive heart failure, lymphedema, pulmonary embolism November 2014 on chronic Coumadin therapy, pulmonary hypertension, chronic kidney disease stage 3 to 4, COPD, obstructive sleep apnea on CPAP, coronary artery disease, osteoarthritis of the knees, restless legs syndrome, renal artery stenosis with a prior history of a stent, peripheral neuropathy, hypothyroidism, gout, iron deficiency anemia, left upper lobe lung mass as noted above. PAST SURGICAL HISTORY: Includes a hysterectomy. FAMILY HISTORY: Noncontributory. ALLERGIES: [place] [address] CONSULTATION Name: ENDER REYES Room #: 209-P [facility] IN .R.#: [id number] Admission: 04/28/16 Attend Phys: Truman Braun MD Discharge: Date of : 38 Report #: [id number] MEDICATIONS: Please see the full medication listing. SOCIAL HISTORY: Lives with her daughter, son-in-law and 14-year-old grandson. House, there is a ramp entry, but she has been unable to utilize secondary to her overall weakness and she needs transporters to get her in and out of the house. She tends to sleep and stay in a lift chair throughout the day. She wants to try to walk in the house and does walk short distances, but notes that her knee arthritis is a significant limiting factor. She thinks her symptoms are overall improved after the injections as noted above. REVIEW OF SYSTEMS: No complaints of chest pain, shortness of breath or abdominal discomfort at this time. She has an indwelling De La Rosa catheter, which she notes is there for the diuretic. She has used one at home before, but otherwise indicates that she can usually void. She has the chronic knee arthritis. She has bilateral lower extremity lymphedema. No other focal extremity pain complaints. PHYSICAL EXAMINATION: GENERAL: She is a 76-year-old morbidly obese white female in no obvious distress. VITAL SIGNS: Last recorded height 5 feet 6 inches, weight 349 pounds. She is alert, pleasant, a good historian. Facies are symmetric. She has functional range of motion of both upper extremities with strength a grade 4- to 3+/5. DTRs are trace to 1. She has the indwelling De La Rosa catheter. She does have exogenous obesity with a fairly pendulous abdomen. In her lower extremities, she has some thickening of her skin distally with some chronic venous stasis type changes. No weeping was noted. Strength of the lower extremities is probably a grade 3+/5 with some discomfort. No obvious knee swelling or obvious instability. She again has probably 3+/5 strength sit to stand with max assist. Gait was 3-4 steps min assist with a front-wheeled walker. ASSESSMENT: A 76-year-old white female with the following problem list: 1. Medical complexity with generalized debilitation. 2. Clinical left upper lobe carcinoma with increasing mediastinal lymphadenopathy. She needs better mobility to consider outpatient PET or potential radiation therapy. 3. Acute renal insufficiency superimposed on chronic kidney disease. 4. Acute on chronic congestive heart failure. 5. Pulmonary hypertension. 6. Prior history of pulmonary embolism, is on anticoagulation. 7. Morbid obesity. 8. Bilateral knee degenerative arthritis with hyaluronic acid injections approximately a month ago. PLAN: Case management notes reviewed. She has refusing any type of skilled [address] [address] CONSULTATION Name: ENDER REYES Room #: 209-P ADM IN [facility]#: [id number] Admission: 04/28/16 Attend Phys: Truman Braun MD Discharge: Date of : 38 Report #: [id number] stay. She did improve nicely during her most recent rehabilitation stay last September when she advanced to the point of ambulating approximately 80 feet with a walker and actually improved to being modified independent with sit to stand. Clearly her decreased functional mobility and activity level is a significant limiting factor, not only for returning back home, but also for consideration for potential outpatient treatment for her lung cancer. The patient and family are strongly desiring for the patient to return for an acute in-hospital inpatient rehabilitation stay. Insurance precertification issues are to be checked and we will be glad to follow along with you. Thank you for asking us to assist in this patient's care. <ELECTRONICALLY SIGNED> By: Truman Marin MD 05/02/16 1539 1431 0049 Truman Marin MD /nt
[~2016-04-28 14:18] MED LIST changes: +AUGMENTIN 500-1 EACH PO; +HYDROCODONE-AP1 EAC6 PO
[2016-04-28 17:58] LABS: HEMATOCRIT 30.6 % (37.0-47.0); HEMOGLOBIN 10.4 gm/dL (12.0-15.0); MCH 29.7 pg (26.0-34.0); MCV 87.3 fL (80.0-100.0); RBC 3.51 mil/uL (4.20-5.00); RDW 14.4 % (10.5-14.5); WBC 6.6 thou/uL (4.0-11.0)
[2016-04-28 18:11] LABS: INR 2.2; PROTIME 22.7 Seconds (9.3-11.4)
[2016-04-28 18:18] LABS: ALBUMIN 3.3 g/dL (3.4-5.0); ALKALINE PHOSPHATASE 88 U/L (46-116); ANION GAP 10 mmol/L (7-16); BUN 21 mg/dL (7-18); CALCIUM 8.4 mg/dL (8.5-10.1); CHLORIDE 105 mmol/L (98-107); CO2 24 mmol/L (21-32); CREATININE 1.4 mg/dL (0.6-1.3); GLUCOSE 91 mg/dL (70-99); POTASSIUM 3.5 mmol/L (3.5-5.1); SGOT 17 U/L (15-37); SGPT 13 U/L (30-65); SODIUM 139 mmol/L (136-145); TOTAL PROTEIN 7.1 g/dL (6.4-8.2); TROPONIN-I < 0.04 ng/mL (<0.04-0.07)
[2016-04-28 18:30] VITALS: BP 184/74
[2016-04-28 20:25] VITALS: BP 175/45
[2016-04-28 20:51] LABS: URINE BILIRUBIN NEGATIVE (Negative); URINE BLOOD 1+ (Negative); URINE COLOR YELLOW; URINE GLUCOSE-RANDOM* NEGATIVE (Negative); URINE KETONES TRACE (Negative); URINE NITRITE POSITIVE (Negative); URINE PROTEIN (DIPSTICK) 1+ (Negative); URINE SPECIFIC GRAVITY 1.015 (1.003-1.035)
[2016-04-28 21:00] LABS: CASTS None Seen /LPF (None Seen); CRYSTALS None Seen /LPF (None Seen); SQUAMOUS 0-3 Few /LPF (0-3); URINE RBC 0-2 Rare /HPF (0-2); URINE WBC 0-5 Rare /HPF (0-5)
[2016-04-28 23:44] VITALS: BP 141/52
[2016-04-29 04:52] VITALS: BP 130/49
[2016-04-29 08:00] VITALS: BP 163/48
[2016-04-29 11:00] VITALS: BP 148/52
[2016-04-29 15:45] VITALS: BP 151/55
[2016-04-29 19:48] VITALS: BP 142/54
[2016-04-30 03:24] LABS: HEMATOCRIT 29.5 % (37.0-47.0); HEMOGLOBIN 9.8 gm/dL (12.0-15.0); MCH 29.2 pg (26.0-34.0); MCHC 33.4 g/dL (28.0-37.0); MCV 87.5 fL (80.0-100.0); RBC 3.37 mil/uL (4.20-5.00); RDW 14.8 % (10.5-14.5); WBC 6.4 thou/uL (4.0-11.0)
[2016-04-30 03:27] VITALS: BP 171/63
[2016-04-30 03:35] LABS: ALBUMIN 2.7 g/dL (3.4-5.0); CALCIUM 7.8 mg/dL (8.5-10.1); CREATININE 1.8 mg/dL (0.6-1.3); PHOSPHORUS 4.1 mg/dL (2.5-4.9); POTASSIUM 3.5 mmol/L (3.5-5.1)
[2016-04-30 03:36] LABS: INR 2.4; PROTIME 24.7 Seconds (9.3-11.4)
[2016-04-30 08:45] VITALS: BP 156/53
[2016-04-30 14:05] VITALS: BP 159/48
[2016-04-30 20:11] VITALS: BP 130/58
[2016-05-01 04:04] VITALS: BP 156/60
[2016-05-01 07:30] VITALS: BP 154/61
[2016-05-01 11:15] VITALS: BP 142/51
[2016-05-01 14:55] VITALS: BP 155/58
[2016-05-01 20:24] VITALS: BP 141/46
[2016-05-02 05:15] VITALS: BP 149/63
[2016-05-02 07:40] LABS: HEMATOCRIT 30.8 % (37.0-47.0); HEMOGLOBIN 10.4 gm/dL (12.0-15.0); MCH 29.2 pg (26.0-34.0); MCHC 33.7 g/dL (28.0-37.0); MCV 86.7 fL (80.0-100.0); RBC 3.55 mil/uL (4.20-5.00); RDW 14.7 % (10.5-14.5)
[2016-05-02 07:50] LABS: INR 1.8; PROTIME 18.7 Seconds (9.3-11.4)
[2016-05-02 07:51] VITALS: BP 153/67
[2016-05-02 08:05] LABS: CREATININE 1.5 mg/dL (0.6-1.3); PHOSPHORUS 4.2 mg/dL (2.5-4.9); POTASSIUM 4.1 mmol/L (3.5-5.1)
[2016-05-02 11:03] VITALS: BP 131/62
[2016-05-02] MEDS ORDERED: AUGMENTIN 500-1 EACH PO (12:56)
[2016-05-02 14:11] VITALS: BP 131/62
[2016-05-02 15:15] VITALS: BP 128/49
[2016-05-02 16:15] VITALS: BP 131/62
== END 2016-05-02 17:11 | disposition home health service (06) | DRG 180 ==
LOC: 2N 14:18
PROVIDERS: Internal Medicine Geriatric Medicine; Internal Medicine Nephrology; Internal Medicine Pulmonary Disease
DX: C34.92 Malignant neoplasm of unspecified part of left bronchus or lung (principal); I50.33 Acute on chronic diastolic (congestive) heart failure; N39.0 Urinary tract infection, site not specified; N18.4 Chronic kidney disease, stage 4 (severe); Z68.43 Body mass index [BMI] 50.0-59.9, adult; R59.0 Localized enlarged lymph nodes; I27.2 Other secondary pulmonary hypertension; G47.33 Obstructive sleep apnea (adult) (pediatric); J44.9 Chronic obstructive pulmonary disease, unspecified; I25.10 Atherosclerotic heart disease of native coronary artery without angina pectoris; G25.81 Restless legs syndrome; I70.1 Atherosclerosis of renal artery; G62.9 Polyneuropathy, unspecified; E03.9 Hypothyroidism, unspecified; M10.9 Gout, unspecified; E66.01 Morbid (severe) obesity due to excess calories; M17.0 Bilateral primary osteoarthritis of knee; B35.1 Tinea unguium; L60.3 Nail dystrophy; I89.0 Lymphedema, not elsewhere classified; Z79.899 Other long term (current) drug therapy; Z80.3 Family history of malignant neoplasm of breast; Z95.5 Presence of coronary angioplasty implant and graft; Z90.710 Acquired absence of both cervix and uterus; Z88.1 Allergy status to other antibiotic agents; Z88.8 Allergy status to other drugs, medicaments and biological substances; Z79.01 Long term (current) use of anticoagulants; Z86.711 Personal history of pulmonary embolism; Z82.49 Family history of ischemic heart disease and other diseases of the circulatory system
CPT/HCPCS: 10081

== ENCOUNTER 2016-05-13 17:00 | Inpatient (IN) | payer OTHER ==
[~2016-05-13] VITALS: Ht 160 cm; Wt 155.7 kg
--- NOTE | ~2016-05-13 | HC ---
[facility] [place] [address] CONSULTATION Name: ENDER REYES Room #: 546-P [facility] IN .R.#: [id number] Admission: 05/13/16 Attend Phys: Truman Braun MD Discharge: 05/16/16 Date of : 38 Report #: [id number] THIS REPORT FOR: //name// CC: Truman Braun DATE OF SERVICE: 05/14/2016 HISTORY OF PRESENT ILLNESS: This 76-year-old female with severe chronic morbid obesity and severe chronic lymphedema with severe chronic trophic skin changes in both lower extremities is readmitted for lower extremity discomfort. I have seen her in the past for severe degenerative arthritis in both knees. She is clearly not a candidate for any aggressive or surgical measures. We have tried cortisone injection and viscosupplementation with only limited benefit. Recently, she felt weakness and discomfort in the left ankle and was readmitted. Her x-rays revealed degenerative change, but no evidence of fracture. At the time of my evaluation, she is difficult to assess given the chronic and severe morbid obesity and trophic skin changes in both lower extremities in general, however, her findings seem to be no different than in the past with mild discomfort in both knees consistent with degenerative change and moderate stiffness and discomfort in both ankles, also consistent with degenerative change and her skin and soft tissue edema problems. I do not see evidence of a new fracture and feel she may have a minor ankle sprain, but would suggest only conservative management. Given her obesity and skin changes, she probably is not a good candidate for any sort of a protected boot and certainly not for a cast. I would favor only activity in moderation and protection using a walker and assistance as needed. She may advance as comfort and strength allow and may be discharged whenever she is stable from a general medical point of view. I think I can see her back on an as needed basis. <ELECTRONICALLY SIGNED> By: Truman Carey MD 05/23/16 0909 1021 2033 Truman Carey MD /nt
--- NOTE | ~2016-05-13 | EKG ---
[address] [place] [place] [address] ELECTROCARDIOGRAM REPORT Name: ENDER REYES Room #: 546-P ADM IN M.R.#: [id number] Admission: 05/13/16 Attend Phys: Truman Braun MD Discharge: Date of : 38 Report #: [id number] THIS REPORT FOR: //name// [facility] ED Test Date: 2016-05-13 Test Time: 18:06:15 Pat Name: ENDER REYES Department: Room: 546 Gender: F Rn L And D: KKODJOVI : 1940 Requested By: Desiree Michelle Order Number: [id number] MD: Jp Pace Measurements Intervals [place] Rate: 71 P: 76 VA: 178 QRS: 10 QRSD: 102 T: 35 QT: 412 QTc: 448 Interpretive Statements Sinus rhythm No significant abnormality Compared to ECG 11/06/2015 09:34:37 Sinus bradycardia no longer present Electronically Signed On 05-15-2016 7:40:05 CDT by Jp Pace [email or web address] <ELECTRONICALLY SIGNED> By: Jp Pace MD, [facility] 05/15/16 0740 05 05 Jp Pace MD, [facility] /EPI
--- NOTE | ~2016-05-13 | H ---
[facility] [address] HISTORY AND PHYSICAL Name: ENDER REYES Room #: 546-P ADM IN M.R.#: [id number] Admission: 05/13/16 Attend Phys: Truman Braun MD Discharge: Date of : 38 Report #: [id number] THIS REPORT FOR: //name// CC: Truman Braun DATE OF SERVICE: 05/13/2016 CHIEF COMPLAINT: Left ankle pain. HISTORY OF PRESENT ILLNESS: The patient is a 76-year-old female with multiple medical problems who fell and injured her left ankle. On Thursday of this week, she underwent a PET scan to assess the left upper lung mass and received medication for anxiety, prior to the procedure, when she got home. Although she did not realize that she was still a little drowsy, she tried to get up with her walker as normally, felt that her legs and knees weak, which "gave out on her". She felt like her left leg and foot sort of folded up underneath her. They watched it for day, but she has been unable to stand or walk due to pain and was brought to the Emergency Room. Reports from the ER staff are that no fractures in the left ankle and she has been tentatively diagnosed with a sprain; however, due to her morbid obesity and other health concerns, she is unable to walk or stand at home and family could not care for her current immobile state. PAST MEDICAL HISTORY: Osteoarthritis of the knees, hypertension, lymphedema, chronic kidney disease stage 3, chronic obstructive pulmonary disease, left upper lung mass concerning for malignancy, but no biopsy at this point, a PET scan has just been taken, chronic diastolic congestive heart failure, coronary artery disease with remote history of cardiac arrest and [place], obstructive sleep apnea. She is closed use CPAP at home, restless legs syndrome. History of PE approximately 2 years ago, so on chronic Coumadin. PAST SURGICAL HISTORY: She has had a hysterectomy and kidney stents, cardiac stent. FAMILY HISTORY: Noncontributory. SOCIAL HISTORY: She has been living with her daughter. No chronic alcohol or tobacco use, but remotely some smoking. ALLERGIES: FLAGYL AND PAXIL. MEDICATIONS: Demadex 40 mg, Lipitor 40 mg, Levoxyl 75 mcg, Toprol-XL 25 mg b.i.d., gabapentin 300 mg b.i.d., ProAir, nitroglycerin, Zoloft 100 mg a day, Advair 1 puff b.i.d., potassium 20 mEq, iron, Mirapex 0.25 mg at night, Coumadin 5 mg Thursday, 2.5 mg 6 days a week. REVIEW OF SYSTEMS: She complains of pain in her ankle with limited movement. [address] [address] HISTORY AND PHYSICAL Name: ENDER REYES Room #: 546-P [facility] IN M.R.#: [id number] Admission: 05/13/16 Attend Phys: Truman Braun MD Discharge: Date of : 38 Report #: [id number] She is unable to stand. Otherwise, no headache, chest pain, shortness of breath, abdominal pain, nausea, vomiting, diarrhea, constipation, dysuria. OBJECTIVE: VITAL SIGNS: Temperature 36.6, pulse 59, respirations 20, blood pressure , O2 sat 93% on room air. GENERAL: She is awake and alert, in no distress. LUNGS: Clear. HEART: Regular. ABDOMEN: Obese, soft, normoactive bowel sounds. EXTREMITIES: Chronic lymphedema with 4+ edema. She has some tenderness to the left ankle with movement. NEUROLOGIC: She is alert and oriented. LABORATORY DATA AND IMAGING: Chest x-ray shows the left upper lung mass, but no infiltrate or worsening CHF, x-ray in the shows swelling and degenerative changes, there appears to be an old avulsion fracture, but nothing acute and x-ray of the foot shows osteoarthritis, but no acute fracture. Her creatinine is 1.5, hemoglobin 10.9. ASSESSMENT: 1. Acute left ankle sprain. 2. Chronic diastolic congestive heart failure. 3. Left upper lobe lung mass. 4. Chronic kidney disease, stage 3. 5. Morbid obesity. 6. Obstructive sleep apnea. 7. Chronic obstructive pulmonary disease. 8. Chronic anticoagulation. 9. Personal history of pulmonary embolism. PLAN: I will continue her home medications. Because of the size and deformity of her foot and lower leg due to lymphedema I am not sure that CAM boot walker will fit and may just cause a pressure wound, so will treat her conservatively, begin physical therapy. She can tolerate ultimately, however, she is probably going to need a care facility for some time. In regards to the lung mass this is being worked up as an outpatient. We will try the track down her PET scan results and see if Dr. Mejia needs to follow up with her while she is here. <ELECTRONICALLY SIGNED> By: Truman Braun MD 05/14/16 1015 0755 0912 Truman Braun MD /nt
--- NOTE | ~2016-05-13 | D ---
[facility] [place] [address] DISCHARGE SUMMARY Name: ENDER REYES Room #: 546-P [facility] IN .R.#: [id number] Admission: 05/13/16 Attend Phys: Truman Braun MD Discharge: Date of : 38 Report #: [id number] THIS REPORT FOR: //name// CC: Truman Braun FINAL DIAGNOSES: 1. Left ankle sprain. 2. Left upper lobe lung cancer. 3. Obstructive sleep apnea. 4. Morbid obesity. 5. Lymphedema. 6. Chronic kidney disease 4. 7. Chronic diastolic congestive heart failure. HOSPITAL COURSE: The patient was admitted from home after she suffered a fall in sprained her left ankle. X-rays were negative. Dr. Carey saw her, but did not feel any other intervention was indicated. She was treated conservatively with her usual home medications. A copy of her PET scan report from was obtained which revealed signs of a left upper lung carcinoma with mediastinal lymph node involvement. Dr. Mejia from Oncology had a conversation with the patient and at this point, the plan is for her to rehab and try to improve her functional mobility treatment. The potential treatment of her cancer will be decided at a later date if she improves. Home medications were continued and she had no other interval complication. PHYSICAL EXAMINATION: GENERAL: On the day of discharge, she was awake and alert, in no distress. VITAL SIGNS: Stable. LUNGS: Clear. HEART: Regular. ABDOMEN: Soft. EXTREMITIES: Showed 2+ edema. DISPOSITION: To return to a retirement facility under the care of inhouse physician. Diet and activity as tolerated. She will have a De La Rosa catheter until mobile. I signed her transfer medication list and she will have follow up lab data in 3 days to monitor INR. <ELECTRONICALLY SIGNED> By: Truman Braun MD 05/16/16 1643 0835 1052 Truman Braun MD /nt
[2016-05-13 17:01] VITALS: BP 186/38
[2016-05-13 18:13] LABS: ABSOLUTE NEUTROPHILS 5.7 thou/uL (1.4-8.2); BASOPHILS 1.1 % (0.0-2.0); EOSINOPHILS 4.3 % (0.0-3.0); HEMATOCRIT 32.3 % (37.0-47.0); HEMOGLOBIN 10.9 gm/dL (12.0-15.0); LYMPHOCYTES 14.5 % (24.0-44.0); MCH 29.2 pg (26.0-34.0); MCHC 33.9 g/dL (28.0-37.0); MCV 86.3 fL (80.0-100.0); MONOCYTES 6.4 % (1.0-8.0); PLATELET COUNT 223 thou/uL (150-400); POLYS 73.7 % (36.0-66.0); RBC 3.74 mil/uL (4.20-5.00); RDW 14.6 % (10.5-14.5); WBC 7.7 thou/uL (4.0-11.0)
[2016-05-13 18:17] LABS: MANUAL DIFF NO
[2016-05-13 18:25] LABS: ANION GAP 7 mmol/L (7-16); BUN 45 mg/dL (7-18); CALCIUM 8.7 mg/dL (8.5-10.1); CHLORIDE 105 mmol/L (98-107); CO2 26 mmol/L (21-32); CREATININE 1.5 mg/dL (0.6-1.0); GLUCOSE 108 mg/dL (74-106); POTASSIUM 4.6 mmol/L (3.5-5.1); SODIUM 138 mmol/L (136-145)
[2016-05-13 18:29] LABS: APTT 36.6 Seconds (24.5-32.8); INR 1.9; PROTIME 20.2 Seconds (9.3-11.4)
[2016-05-13 18:32] LABS: ALBUMIN 3.3 g/dL (3.4-5.0); ALKALINE PHOSPHATASE 95 U/L (46-116); SGOT 20 U/L (15-37); SGPT 16 U/L (30-65); TOTAL BILIRUBIN 0.6 mg/dL (<0.1-1.0); TOTAL PROTEIN 7.2 g/dL (6.4-8.2); TROPONIN-I < 0.04 ng/mL (<0.04-0.07)
[2016-05-13 19:54] VITALS: BP 134/34
[2016-05-13 20:00] VITALS: BP 151/58
[2016-05-14] VITALS: BP 145/37
[2016-05-14 04:00] VITALS: BP 142/49
[2016-05-14 07:40] VITALS: BP 134/41
[2016-05-14 16:42] VITALS: BP 147/48
[2016-05-14 17:27] LABS: INR 1.8; PROTIME 18.6 Seconds (9.3-11.4)
[2016-05-14 20:50] VITALS: BP 136/31
[2016-05-15 04:15] VITALS: BP 136/53
[2016-05-15 05:44] LABS: INR 1.7; PROTIME 17.9 Seconds (9.3-11.4)
[2016-05-15 07:50] VITALS: BP 149/57
[2016-05-15 16:00] VITALS: BP 149/47
[2016-05-15 19:01] VITALS: BP 135/30
[2016-05-16 05:52] VITALS: BP 134/44
[2016-05-16 06:30] LABS: INR 1.5
[2016-05-16 06:35] LABS: CALCIUM 8.1 mg/dL (8.5-10.1); CREATININE 1.8 mg/dL (0.6-1.0); POTASSIUM 4.1 mmol/L (3.5-5.1)
[2016-05-16] MEDS ORDERED: AMOXICILLIN 50500 M1 PO (08:18)
[2016-05-16] MEDS ORDERED: DUONEB 2.5-0.5 M3 ML INH (08:18)
== END 2016-05-16 17:11 | DRG 563 ==
LOC: ER 17:00 → EROBS 18:43 → 5S 18:43
PROVIDERS: Emergency Medicine; Internal Medicine Geriatric Medicine
DX: S93.492A Sprain of other ligament of left ankle, initial encounter (principal); C34.12 Malignant neoplasm of upper lobe, left bronchus or lung; I13.0 Hypertensive heart and chronic kidney disease with heart failure and stage 1 through stage 4 chronic kidney disease, or unspecified chronic kidney disease; N18.4 Chronic kidney disease, stage 4 (severe); I50.32 Chronic diastolic (congestive) heart failure; Z68.44 Body mass index [BMI] 60.0-69.9, adult; J44.9 Chronic obstructive pulmonary disease, unspecified; I25.10 Atherosclerotic heart disease of native coronary artery without angina pectoris; E78.5 Hyperlipidemia, unspecified; G47.33 Obstructive sleep apnea (adult) (pediatric); G25.81 Restless legs syndrome; E66.01 Morbid (severe) obesity due to excess calories; M17.0 Bilateral primary osteoarthritis of knee; M19.072 Primary osteoarthritis, left ankle and foot; M19.071 Primary osteoarthritis, right ankle and foot; W19.XXXA Unspecified fall, initial encounter; Y93.89 Activity, other specified; Y92.89 Other specified places as the place of occurrence of the external cause; Y99.8 Other external cause status; I25.2 Old myocardial infarction; Z86.711 Personal history of pulmonary embolism; Z87.891 Personal history of nicotine dependence; Z90.710 Acquired absence of both cervix and uterus; Z95.5 Presence of coronary angioplasty implant and graft; Z88.1 Allergy status to other antibiotic agents; Z88.8 Allergy status to other drugs, medicaments and biological substances
CPT/HCPCS: 10086